=== PATIENT | female | born 1995 | race Caucasian/White ===

== ENCOUNTER 2017-06-14 15:30 | Emergency (ER) | payer SELFPAY ==
[~2017-06-14] VITALS: Ht 167.6 cm; Wt 75.0 kg
[2017-06-14] MEDS ORDERED: LORazepam 2 MG/ML VIAL IV PUSH ONE ×3 (15:45→16:00)
[2017-06-14] MEDS ORDERED: ONDANSETRON HCL 4 MG/2 ML VIAL ONE (15:47)
[2017-06-14 15:56] VITALS: BP 129/87; PULSE 88; RESP 18; O2SAT 97
[2017-06-14] MEDS ORDERED: SODIUM CHLOR 0.9% 1000 ML INJ 1,000 ML IV ONE (16:00)
[2017-06-14 16:28] LABS: AUTOMATED NEUTROPHIL # 14.4 TH/MM3 (1.8-7.7); BASOPHIL # 0.1 TH/MM3 (0-0.2); BASOPHIL % 0.4 % (0.0-2.0); HEMATOCRIT 41.9 % (35.0-46.0); LYMPH % 10.2 % (9.0-44.0); LYMPHOCYTE # 1.8 TH/MM3 (1.0-4.8); MEAN CELL VOLUME 77.4 FL (80.0-100.0); MEAN CORPUSCULAR HEMOGLOBIN 25.8 PG (27.0-34.0); MEAN CORPUSCULAR HGB CONC 33.3 % (32.0-36.0); MEAN PLATELET VOLUME 9.3 FL (7.0-11.0); MONO % 6.5 % (0.0-8.0); MONOCYTE # 1.1 TH/MM3 (0-0.9); NEUT % 82.9 % (16.0-70.0); PLATELET COUNT 428 TH/MM3 (150-450); RED BLOOD COUNT 5.41 MIL/MM3 (4.00-5.30); RED CELL DISTRIBUTION WIDTH 14.5 % (11.6-17.2); WHITE BLOOD COUNT 17.4 TH/MM3 (4.0-11.0)
[2017-06-14 16:46] VITALS: BP 116/59; PULSE 70; O2SAT 96
[2017-06-14 16:53] LABS: ALKALINE PHOSPHATASE 86 U/L (45-117); TOTAL BILIRUBIN ADULT 0.3 MG/DL (0.2-1.0); TOTAL PROTEIN 8.1 GM/DL (6.4-8.2)
[2017-06-14 17:20] LABS: ALT (GPT) 17 U/L (9-42); AST (GOT) 22 U/L (16-38); BICARBONATE 20.2 MEQ/L (21.0-32.0); BLOOD UREA NITROGEN 6 MG/DL (7-18); CALCIUM 8.4 MG/DL (8.5-10.1); CHLORIDE 107 MEQ/L (98-107); CREATININE 0.55 MG/DL (0.50-1.00); GLOMERULAR FILTRATION RATE 141 ML/MIN (>89); GLUCOSE,RANDOM 80 MG/DL (74-106); SODIUM (NA) 141 MEQ/L (136-145)
--- NOTE | 2017-06-14 18:01 | PD ---
HPI Chief Complaint: OD/ Ingestion Time Seen by Provider: 15:43 Travel History International Travel<30 days: No Contact w/Intl Traveler<30days: No Traveled to known affect area: No History of Present Illness HPI Is a well 21-year-old young woman who presents to the emergency department the [facility] for altered mental status, aggressive behavior, and suspected drug abuse or intoxication. [place] and then [place] out. In route with EMS she required physical restraint due to aggressive agitated confused behavior. No evidence of injury. No known medical history. Friends on scene reported possible alcohol use, and "Heather" use. History Past Medical History Medical History: Unable to Obtain Past Surgical History Surgical History: Unable to Obtain Social History Alcohol Use: Yes Tobacco Use: Yes Allergies-Medications (Allergen,Severity, Reaction): Coded Allergies: No Allergy Information Available (Unverified , 06/14/17) Review of Systems ROS Limitations: Clinical Condition Physical Exam Narrative GENERAL: A 21-year-old woman, in restraints, screaming wildly, incoherent, agitated and a little bit threatening but not very directed. SKIN: Focused skin assessment warm/dry. HEAD: Atraumatic. Normocephalic. EYES: Pupils equal and round. No scleral icterus. No injection or drainage. ENT: No nasal bleeding or discharge. Mucous membranes pink and moist. NECK: Trachea midline. No JVD. CARDIOVASCULAR: Heart rate rapid. No murmurs. RESPIRATORY: No accessory muscle use. Clear to auscultation. Breath sounds equal bilaterally. GASTROINTESTINAL: Abdomen soft, non-tender, nondistended. Hepatic and splenic margins not palpable. MUSCULOSKELETAL: No obvious deformities. No evidence of extremity or bony injury. NEUROLOGICAL: Agitated and wildly disoriented. Moves all extremities. No evidence of focal deficit. Data Data Last Documented VS Vital Signs Date Time Temp Pulse Resp B/P (MAP) Pulse Ox O2 Delivery O2 Flow Rate FiO2 06/14/17 16:46 70 116/59 (78) 96 Room Air 06/14/17 15:56 18 Orders Orders Lorazepam Inj (Ativan Inj) (06/14/17 15:45) Ondansetron Inj (Zofran Inj) (06/14/17 15:47) Complete Blood Count With Diff (06/14/17 15:58) Comprehensive Metabolic Panel (06/14/17 15:58) Beta Hcg (Quant/Titer) (06/14/17 15:58) Iv Access Insert/Monitor (06/14/17 15:58) Lorazepam Inj (Ativan Inj) (06/14/17 16:00) Lorazepam Inj (Ativan Inj) (06/14/17 16:00) Sodium Chlor 0.9% 1000 Ml Inj (Ns 1000 M (06/14/17 16:00) Alcohol (Ethanol) (06/14/17 17:34) Restraints Non-Violent LANDRY.Q3H (06/14/17 17:52) Labs Laboratory Tests Test 06/14/17 16:20 White Blood Count 17.4 TH/MM3 Red Blood Count 5.41 MIL/MM3 Hemoglobin 14.0 GM/DL Hematocrit 41.9 % Mean Corpuscular Volume 77.4 FL Mean Corpuscular Hemoglobin 25.8 PG Mean Corpuscular Hemoglobin Concent 33.3 % Red Cell Distribution Width 14.5 % Platelet Count 428 TH/MM3 Mean Platelet Volume 9.3 FL Neutrophils (%) (Auto) 82.9 % Lymphocytes (%) (Auto) 10.2 % Monocytes (%) (Auto) 6.5 % Eosinophils (%) (Auto) 0.0 % Basophils (%) (Auto) 0.4 % Neutrophils # (Auto) 14.4 TH/MM3 Lymphocytes # (Auto) 1.8 TH/MM3 Monocytes # (Auto) 1.1 TH/MM3 Eosinophils # (Auto) 0.0 TH/MM3 Basophils # (Auto) 0.1 TH/MM3 CBC Comment DIFF FINAL Differential Comment Blood Urea Nitrogen 6 MG/DL Creatinine 0.55 MG/DL Random Glucose 80 MG/DL Total Protein 8.1 GM/DL Albumin 4.0 GM/DL Calcium Level 8.4 MG/DL Alkaline Phosphatase 86 U/L Aspartate Amino Transf (AST/SGOT) 22 U/L Alanine Aminotransferase (ALT/SGPT) 17 U/L Total Bilirubin 0.3 MG/DL Sodium Level 141 MEQ/L Potassium Level 3.5 MEQ/L Chloride Level 107 MEQ/L Carbon Dioxide Level 20.2 MEQ/L Anion Gap 14 MEQ/L Estimat Glomerular Filtration Rate 141 ML/MIN Human Chorionic Gonadotropin, Quant LESS THAN 1 MIU/ML MDM Medical Decision Making Medical Screen Exam Complete: Yes Emergency Medical Condition: Yes Differential Diagnosis Alcohol intoxication, illicit drug use, delirium, infection, occult trauma, other Narrative Course Medical decision making INITIAL: Is a 21-year-old presents emergency department with wild bizarre behavior likely substance-induced. No evidence of trauma. Required sedation and restraint for her staff safety. Responded well to a total of 4 mg of Ativan. Resting calmly now, labs are unremarkable. Critical Care Narrative Aggregate critical care time was 30 minutes. Time to perform other separately billable procedures was not included in the critical care time. My time did not include minutes spent treating any other patients simultaneously or on activities that did not directly contribute to the patient's treatment. The services I provided to this patient were to treat and/or prevent clinically significant deterioration that could result in: Agitated delirium, injury to self, injury to others, oversedation, other. I provided critical care services requiring my management, as noted below: Chart data review, documentation time, medication orders and management, vital sign assessments/reviewing monitor data, ordering and reviewing lab tests, ordering and interpreting/reviewing x-rays and diagnostic studies, care of the patient and discussion of the patient with the admitting physicians. Diagnosis Primary Impression: Altered mental status Leonard Fuentes MD Jun 14, 2017 18:01
[2017-06-14 18:52] VITALS: BP 160/70; PULSE 110; RESP 18; TEMP 98.4; O2SAT 100
--- NOTE | 2017-06-14 19:20 | PD ---
Data Data Last Documented VS Vital Signs Date Time Temp Pulse Resp B/P (MAP) Pulse Ox O2 Delivery O2 Flow Rate FiO2 06/14/17 18:52 98.4 110 18 160/70 (100) 100 Room Air Orders Orders Lorazepam Inj (Ativan Inj) (06/14/17 15:45) Ondansetron Inj (Zofran Inj) (06/14/17 15:47) Complete Blood Count With Diff (06/14/17 15:58) Comprehensive Metabolic Panel (06/14/17 15:58) Beta Hcg (Quant/Titer) (06/14/17 15:58) Iv Access Insert/Monitor (06/14/17 15:58) Lorazepam Inj (Ativan Inj) (06/14/17 16:00) Lorazepam Inj (Ativan Inj) (06/14/17 16:00) Sodium Chlor 0.9% 1000 Ml Inj (Ns 1000 M (06/14/17 16:00) Alcohol (Ethanol) (06/14/17 17:34) Restraints Non-Violent LANDRY.Q3H (06/14/17 17:52) Labs Laboratory Tests Test 06/14/17 16:20 White Blood Count 17.4 TH/MM3 Red Blood Count 5.41 MIL/MM3 Hemoglobin 14.0 GM/DL Hematocrit 41.9 % Mean Corpuscular Volume 77.4 FL Mean Corpuscular Hemoglobin 25.8 PG Mean Corpuscular Hemoglobin Concent 33.3 % Red Cell Distribution Width 14.5 % Platelet Count 428 TH/MM3 Mean Platelet Volume 9.3 FL Neutrophils (%) (Auto) 82.9 % Lymphocytes (%) (Auto) 10.2 % Monocytes (%) (Auto) 6.5 % Eosinophils (%) (Auto) 0.0 % Basophils (%) (Auto) 0.4 % Neutrophils # (Auto) 14.4 TH/MM3 Lymphocytes # (Auto) 1.8 TH/MM3 Monocytes # (Auto) 1.1 TH/MM3 Eosinophils # (Auto) 0.0 TH/MM3 Basophils # (Auto) 0.1 TH/MM3 CBC Comment DIFF FINAL Differential Comment Blood Urea Nitrogen 6 MG/DL Creatinine 0.55 MG/DL Random Glucose 80 MG/DL Total Protein 8.1 GM/DL Albumin 4.0 GM/DL Calcium Level 8.4 MG/DL Alkaline Phosphatase 86 U/L Aspartate Amino Transf (AST/SGOT) 22 U/L Alanine Aminotransferase (ALT/SGPT) 17 U/L Total Bilirubin 0.3 MG/DL Sodium Level 141 MEQ/L Potassium Level 3.5 MEQ/L Chloride Level 107 MEQ/L Carbon Dioxide Level 20.2 MEQ/L Anion Gap 14 MEQ/L Estimat Glomerular Filtration Rate 141 ML/MIN Human Chorionic Gonadotropin, Quant LESS THAN 1 MIU/ML Ethyl Alcohol Level 296 MG/DL [facility] Medical Record Reviewed: Yes Supervised Visit with MARGAUX: No Narrative Course During the course of the patient's emergency department visit, the patient's history, examination, and differential diagnosis were reviewed with the patient. The patient was placed on a target man with oximetry and frequent blood pressure monitoring. The patient had IV access obtained and blood work sent for analysis. The patient's case was checked out to me by Dr. Fuentes. Please see his complete history and physical. The patient's case was checked out to me at the conclusion of his shift. The patient reportedly arrives after polysubstance abuse. Patient arrived agitated. The patient received Ativan for agitation and was observed for improvement in her mentation. The patient was initially provided 2 mg of Ativan IV. The patient was given normal saline 2 L and total IV fluid bolus, Zofran 4 mg IV, a second or 2 mg of Ativan IV. The patient's laboratory studies were reviewed and remarkable for a white count of 17.4, hemoglobin 14, platelets 428 with 82.9 neutrophils, CMP is remarkable for CO2 of 20.2, BUN 6, calcium 8.4, test is negative, alcohol level 296. The patient is being observed in the emergency department for improvement in her mentation after polysubstance abuse. The patient's family members arrived at the bedside will be transporting the patient home when she is more awake and alert. The patient is resting comfortably and feels better, is alert and in no distress. The patient's results and examination findings were discussed with the patient. The repeat examination is unremarkable and benign. The history, exam, diagnostic testing, and current condition do not suggest any significant pathology to warrant further testing, continued ED treatment, admission, or surgical evaluation at this point. The vital signs have been stable. The patient does not have uncontrollable pain, intractable vomiting, or other significant symptoms. The patient's condition is stable and appropriate for discharge. The patient will pursue further outpatient evaluation with a primary care physician or other designated or consulting physician as indicated in the discharge instructions. The patient expressed understanding and was agreeable with this plan. Diagnosis Primary Impression: Altered mental status Qualified Codes: R41.82 - Altered mental status, unspecified Additional Impression: Alcohol intoxication Qualified Codes: F10.929 - Alcohol use, unspecified with intoxication, unspecified Referrals: [facility] [address] 1 week Primary Care Physician 1 week Patient Instructions: General Instructions, Polysubstance Abuse (ED) Additional Instruction: Avoid alcohol as you are under age, avoid street drugs. Disposition: 01 DISCHARGE HOME Condition: Stable Kadie Woods MD Jun 14, 2017 19:20
[2017-06-14 20:00] VITALS: BP 135/75; PULSE 98; RESP 16; O2SAT 100
== END 2017-06-14 22:45 | disposition home or self-care (01) ==
LOC: NEPE 15:30 → NEPD 22:45
DX: F10.129 Alcohol abuse with intoxication, unspecified (principal); Y90.8 Blood alcohol level of 240 mg/100 ml or more; Z78.1 Physical restraint status; Z72.0 Tobacco use
CPT/HCPCS: 80053; 80307; 84702; 85025; 96374; 96375; 99291; J2060; J2405; J7030